=== PATIENT | female | born 1990 | race Asian ===

== ENCOUNTER 2018-12-09 12:01 | Emergency (ER) | payer SELFPAY ==
[2018-12-09 12:38] LABS: Urine Appearance Cloudy; Urine Bacteria 1+ (Absent); Urine Bilirubin Negative (Negative); Urine Blood 3+ (Negative); Urine Color Colorless; Urine Glucose Negative (Negative); Urine Ketones Negative (Negative); Urine Nitrite Negative (Negative); Urine Protein Negative (Negative); Urine Red Blood Cell 2+(6-10/hpf) (Absent); Urine Specific Gravity 1.003 (1.010-1.030); Urine Squamous Epithelial Cell Present (Absent); Urine Urobilinogen Negative (Negative); Urine White Blood Cell 3+(>20/hpf) (Absent)
--- NOTE | 2018-12-09 12:41 | ED ---
GI/ HPI - HPI Summary HPI Summary: The pt is 28 yr old female presenting to [facility] c/o UTI symptoms beginning 3 days [employer]. She states that she experiences dysuria when urinating and had a fever at home. She notes that she has been getting frequent UTIs over the last few months. She rates her current pain severity a 2/10. No aggravating or alleviating factors noted. She also reports abd pain and urgency but denies any n/v/d. - History of Current Complaint Chief Complaint: EDUrogenitalProblems Time Seen by Provider: 12/09/18 12:27 Stated Complaint: POSS UTI PER PT Hx Obtained From: Patient Onset/Duration: Started Days Ago, Still Present Timing: Constant, Lasting Days Severity: Mild Current Severity: Mild Pain Intensity: 2 Location of Pain: Suprapubic Associated Signs and Symptoms: Positive: Fever, Dysuria, Abdominal Pain, Other: - urgency. Negative: Nausea, Vomiting, Diarrhea - Allergy/Home Medications Allergies/Adverse Reactions: Allergies Allergy/AdvReac Type Severity Reaction Status Date / Time No Known Allergies Allergy Verified 12/09/18 12:10 PMH/Surg Hx/FS Hx/Imm Hx Sensory History: Denies: Hx Legally Blind, Hx Deafness Opthamlomology History: Denies: Hx Legally Blind EENT History: Denies: Hx Deafness - Surgical History Surgical History: None Surgery Procedure, Year, and Place: none Infectious Disease History: No Infectious Disease History: Denies: Traveled Outside the [place] in Last 30 Days - Family History Known Family History: Negative: Renal Disease - Social History Alcohol Use: None Substance Use Type: Reports: None Review of Systems Positive: Fever Positive: Abdominal Pain. Negative: Vomiting, Diarrhea, Nausea Positive: dysuria, urgency All Other Systems Reviewed And Are Negative: Yes Physical Exam - Summary Physical Exam Summary: Constitutional: Well-developed, Well-nourished, Alert. (-) Distressed Skin: Warm, Dry HENT: Normocephalic; Atraumatic Eyes: Conjunctiva normal Neck: Musculoskeletal ROM normal neck. (-) JVD, (-) Stridor, (-) Tracheal deviation Cardio: Rhythm regular, rate normal, Heart sounds normal; Intact distal pulses; Radial pulses are 2+ and symmetric. (-) Murmur Pulmonary/Chest wall: Effort normal. (-) Respiratory distress, (-) Wheezes, (-) Rales Abd: Soft, (-) tenderness, (-) Distension, (-) Guarding, (-) Rebound Musculoskeletal: (-) Edema Lymph: (-) Cervical adenopathy Neuro: Alert, Oriented x3 Psych: Mood and affect Normal Triage Information Reviewed: Yes Vital Signs On Initial Exam: Initial Vitals Temp Pulse Resp BP Pulse Ox 99.5 F 95 16 122/78 100 12/09/18 12:03 12/09/18 12:03 12/09/18 12:03 12/09/18 12:03 12/09/18 12:03 Vital Signs Reviewed: Yes Procedures - Sedation Patient Received Moderate/Deep Sedation with Procedure: No Diagnostics - Vital Signs Vital Signs Temp Pulse Resp BP Pulse Ox 12/09/18 12:03 99.5 F 95 16 122/78 100 - Laboratory Lab Statement: Any lab studies that have been ordered have been reviewed, and results considered in the medical decision making process. GIGU Course/Dx - Course Course Of Treatment: Patient is here with 3 days of dysuria and frequency. Patient has no evidence of pyelonephritis. Patient has no history concerning for cervicitis or PID. Patient had a UA which showed UTI. Patient started on antibiotic. - Diagnoses Provider Diagnoses: UTI (urinary tract infection) Discharge ED - Sign-Out/Discharge Documenting (check all that apply): Patient Departure - discharge - Discharge Plan Condition: Stable Disposition: HOME Prescriptions: Nitrofurantoin Monohyd/M-Cryst [Macrobid 100 mg Capsule] 100 mg PO BID 5 Days # 10 cap Patient Education Materials: Urinary Tract Infection in Women (ED) Referrals: Kieran Lawler MD [Medical Doctor] - 3 Days Care [facility] [Outside] - 3 Days Additional Instructions: Please follow up with the Urologist within 1-3 days. PLEASE RETURN TO EMERGENCY DEPARTMENT FOR ANY NEW OR WORSENING SYMPTOMS. Please follow up with your primary care physician. Please make all follow-ups in 1-3 days unless I advise you otherwise. - Billing Disposition and Condition Condition: STABLE Disposition: Home - Attestation Statements Document Initiated by Scribe: Yes Documenting Scribe: Horacio Bell Provider For Whom Scribe is Documenting (Include Credential): Gautam Hendricks MD Scribe Attestation: IHoracio, scribed for Gautam Hendricks MD on 12/11/18 at 1051. Scribe Documentation Reviewed: Yes Provider Attestation: The documentation as recorded by the scribe, Horacio Bell accurately reflects the service I personally performed and the decisions made by me, Gautam Hendricks MD Status of Scribe Document: Viewed
[2018-12-09 13:17] VITALS: BP 115/88
== END 2018-12-09 13:05 | disposition home or self-care (01) ==
LOC: ED 12:01
DX: N39.0 Urinary tract infection, site not specified (principal); Z87.440 Personal history of urinary (tract) infections
CPT/HCPCS: 81003; 81015; 87086; 99282